=== PATIENT | female | born 1930 | race Caucasian/White ===

== ENCOUNTER 2016-06-09 13:35 | Inpatient (IN) | payer MEDICARE ==
--- NOTE | 2016-06-09 14:17 | ED Physician Chart ---
Chief Complaint/HPI - Patient Information Date Seen:: 06/09/16 Time Seen:: 14:30 Chief Complaint:: redness and swelling both lower legs. History of Present Illness:: Patient has had redness and swelling both lower legs left leg more than right leg for last 1 month. She denies fever or chest pain or shortness of breath Historian:: Patient, Family Member Review:: Nurse's Note Reviewed, Old Chart Reviewed Review of Systems - Review of Systems General/Constitutional: No fever, No chills Skin: Skin lesions Head: No headache Eyes: No loss of vision ENT: No earache Neck: No neck pain Cardio Vascular: No chest pain, No palpitations Pulmonary: No SOB GI: No nausea, No vomiting G/U: No dysuria, No hematuria Musculoskeletal: No bone or joint pain Psychiatric: No prior psych history Hematopoietic: No bruising Allergic/Immuno: No urticaria Neurological: No syncope Past Medical History - Past Medical History Past Medical History: HTN, Thyroid disorder, Arthritis, Other (hypothyroidism; anemia; ulcerative colitis) Family History: Heart disease, Diabetes Melitus, Other (peripheral vascular disease) Social History: Non Smoker Surgical History: other (basal cell carcinomas) Psychiatricy History: None Medication: Reviewed Physical Exam - Physical Examination General/Constitutional: Well-developed, well-nourished, Alert, No distress Head: Atraumatic Eyes: Lids, conjuctiva normal, PERRL Other Skin comments:: Redness, swelling and edema of both lower legs, both ankles, both feet, left more than right ENMT: External ears, nose nl Other ENMT comments:: Edentulous Respiratory: Nl effort/Exclusion Cardio Vascular: RRR, No murmur, gallop, rubs GI: No organomegaly : No CVA tenderness Other Extremities comments:: See above under skin; tinea cruris toes both feet Neuro/Psych: Alert/oriented Misc: Normal back Labs/Radiology/EKG Results - Lab Results Results: Laboratory Results - last 24 hr 06/09/16 06/09/16 06/09/16 14:25 14:25 14:25 WBC 6.3 RBC 4.28 Hgb 12.1 Hct 35.8 MCV 83.4 MCH 28.2 MCHC Differential 33.7 RDW 16.1 Plt Count 293 MPV 7.4 Neutrophils % 69.2 Lymphocytes % 21.6 Monocytes % 8.0 Eosinophils % 0.9 Basophils % 0.3 PT 9.4 L INR 0.90 PTT (Actin FS) 24.0 L Sodium 135 L Potassium 3.7 Chloride 102 Carbon Dioxide 26.6 Anion Gap 10.1 BUN 20 Creatinine 0.7 Est GFR ( Amer) TNP Est GFR (Non-Af Amer) TNP BUN/Creatinine Ratio 28.6 Glucose 109 H Calcium 9.9 - Radiology Results Results: Venous Doppler negative for DVT ED Septic Shock - . Is Septic Shock (SBP<90, OR Lactate>4 mmol\L) present?: No Reassessment (Disposition) - Reassessment Reassessment Condition:: Unchanged - Diagnosis Diagnosis:: cellulitis both lower legs - Patient Disposition Admitted to:: Med/Surg Spoke to:: Naeem Brewer Admitting Medical Physician:: Naeem Brewer Condition at Disposition:: Stable, Unchanged
[2016-06-09 14:36] LABS: % BASOPHILS 0.3 % (0.0-2.0); % EOSINOPHILS 0.9 % (0.0-5.0); % LYMPHOCYTES 21.6 % (20.0-50.0); % NEUTROPHILS 69.2 % (40.0-80.0); HEMATOCRIT 35.8 % (35.0-45.0); HEMOGLOBIN 12.1 gm/dL (11.7-16.1); MEAN CELL VOLUME 83.4 fl (81-100); MEAN CORPUSCULAR HEMOGLOBIN 28.2 pg (27.0-31.0); MEAN CORPUSCULAR HGB CONC 33.7 pg (28.0-36.0); MEAN PLATELET VOLUME 7.4 fl; NEUTROPHILE ABSOLUTE 4.3 Th/cmm (1.8-8.0); PLATELET COUNT 293 Th/cmm (150-400); RED BLOOD COUNT 4.28 Mil/cmm (3.80-5.20); RED CELL DISTRIBUTION WIDTH 16.1 % (11.5-20.0); WHITE BLOOD COUNT 6.3 Th/cmm (4.8-10.8)
[2016-06-09 14:53] LABS: ANION GAP 10.1 (7.0-16.0); BUN - UREA NITROGEN 20 mg/dL (7-25); BUN/CREATININE RATIO 28.6; CALCIUM SERUM 9.9 mg/dL (8.6-10.3); CARBON DIOXIDE 26.6 mEq/L (21.0-31.0); CHLORIDE 102 mEq/L (98-107); CREATININE - SERUM 0.7 mg/dL (0.6-1.2); GLUCOSE 109 mg/dL (70-105); POTASSIUM SERUM 3.7 mEq/L (3.5-5.1); SODIUM SERUM 135 mEq/L (136-145)
[2016-06-09 14:55] LABS: INR 0.9 (0.5-1.4); PROTHROMBIN TIME (TEST) 9.4 SECONDS (9.5-11.5)
--- NOTE | 2016-06-09 15:23 | Diagnostic Imaging Report ---
Bilateral lower extremity Doppler venous ultrasound exam HISTORY: Pain/swelling Sonographic sector images were obtained through the deep venous systems of both legs. Associated Doppler data was obtained. The exam demonstrates patency of the common femoral, superficial femoral, popliteal, and posterior tibial veins bilaterally. Specifically, no thrombus is seen. There are normal compressibility and augmentation responses. IMPRESSION: Negative exam for deep vein thrombophlebitis.
[2016-06-09] MEDS ORDERED: Sodium Chloride 0.9% 1,000 ML IV ONE (15:46)
--- NOTE | 2016-06-09 21:44 | Admit Criteria Form ---
Admit Criteria Forms - Admit Criteria Diagnosis: CELLULITIS Clinical Indications for Admission to Inpatient Care (Place 'X' for any and all applicable criteria): Admission is indicated for ANY ONE of the following(1)(2)(3)(4)(5): [ ]I. Limb-threatening infection [ ]II. High-risk comorbid condition as indicated by ANY ONE of the following: [ ]a) Uncontrolled diabetes (eg, HbA1c greater than 10% (0.1)) [ ]b) Cirrhosis [ ]c) Neutropenia [ ]d) Asplenia [ ]e) Immunosuppression [ ]f) Symptomatic heart failure [X]III. Failure of outpatient therapy as indicated by ALL of the following: [X]a) Progression or no improvement after adequate trial (minimum of 48 hours, with longer period for stable lower extremity infection) [X]b) Adequate antibiotic regimen as indicated by use of ANY ONE of the following: [ ]i) First-generation cephalosporin (e.g., cephalexin) [ ]ii) Antistaphylococcal penicillin (e.g., dicloxacillin) [ ]iii) Penicillin-allergic patient regimen (clindamycin, extended-spectrum fluoroquinolone, or doxycycline) [X]iv) Resistant organism (eg, methicillin-resistant Staphylococcus aureus) regimen (6) [X]c) Outpatient intravenous therapy regimen is not appropriate due to ANY ONE of the following. (7)(8)(9)(10): [ ]i) It was tried and was not successful (eg, progression of infection). [X]ii) It is not available or cannot be arranged in a clinically appropriate time frame (e.g., the next day). [ ]iii) Clinical presentation (eg, acuity of infection, rapidity of progression, confirmed or suspected bacteremia) is judged to require ALL of the following: [ ]1) Immediate initiation of intravenous therapy ( eg, cannot wait for next day) [ ]2) Intensity of patient monitoring and observation (eg, vital sign measurement, checks for infection progression) that cannot be provided at other than inpatient level of care [ ]IV. Mental status changes [ ]V. Bacteremia [ ]. Hemodynamic instability [ ]VII. Suspected necrotizing soft tissue infection (e.g., gas in tissue)(11)( 12) [ ]VIII. Orbital infection (13)(14) [ ]IX. Associated surgical procedure (e.g., abscess drainage, debridement) not amenable to outpatient, emergency department, or observation care [ ]X. Cutaneous gangrene [ ]XI. High fever (temperature greater than 39.5 degrees C (103.1 degrees F) (oral)) not responsive to outpatient, emergency department, or observation care therapy [ ]XIII. Inpatient admission required rather than observation care (Also use Cellulitis: Observation Care as appropriate) because of ANY ONE of the following : [ ]a) Periorbital or perineal infection that is severe or worsening [ ]b) Severe pain requiring acute inpatient management [ ]c) IV fluid to replace significant ongoing (e.g., for over 24 hours) losses (greater than 3L/m2 per day) [ ]d) Compartment syndrome monitoring (17) [ ]e) Strict or protective (eg, laminar flow) isolation [ ]f) Urgent debridement or skin grafting [ ]g) Bone or joint debridement [ ]h) Immediate inpatient surgery [ ]i) Other condition, treatment or monitoring requiring inpatient admission Extended stay beyond goal length of stay may be needed for (1)(18): [ ]a) Necrotizing soft tissue infection or fasciitis [ ]b) Gram-negative infection [ ]c) Methicillin-resistant Staphylococcal aureus (MRSA) infection [ ]d) Peripheral venous insufficiency with cellulitis [ ]e) Extensive edema [ ]f) Sepsis or continued Hemodynamic instability [ ]g) Continued high fever or mental status change [ ]h) Bacteremia [ ]i) Active serious comorbid conditions ( eg, heart failure, renal insufficiency) The original [facility] [employer] content created by [facility] has been revised. The portions of the content which have been revised are identified through the use of italic text or in bold, and [facility] has neither reviewed nor approved the modified material. All other unmodified content is copyright [facility] Please see references footnoted in the original [facility] edition 2016 Admit Criteria Met?: Yes
--- NOTE | 2016-06-10 06:04 | History & Physical ---
CHIEF COMPLAINT: Left leg swelling and redness for almost 1 month. HISTORY OF PRESENT ILLNESS: The patient is an 85-year-old female with a past medical history of hypertension, hypothyroidism, arthritis and ulcerative colitis brought in from nursing facility for redness and swelling of both lower extremities, worse on the left side. The patient also found to have abdominal wall masses mainly on the left side, left lower quadrant. The patient also found to have uterine prolapse. On initial evaluation, the patient was afebrile and WBC count was 6300. The patient admitted for IV antibiotic administration for her cellulitis, worse on the left side. PAST MEDICAL HISTORY: Includes hypertension, hypothyroidism, DJD, arthritis and ulcerative colitis. ALLERGIES: NKDA. MEDICATIONS: As per medication reconciliation sheet. REVIEW OF SYSTEMS: CONSTITUTIONAL: The patient has no fever, no chills. HEENT: No diplopia, no photophobia, no sore throat. RESPIRATORY: No cough, no shortness of breath. CARDIOVASCULAR: No chest pain or palpitation. GASTROINTESTINAL: No nausea, no vomiting, no diarrhea, no constipation. The patient has abdominal masses. GENITOURINARY: The patient has uterine prolapse. MUSCULOSKELETAL: No muscle pain, no joint pain. NEUROLOGIC: No headache, no dizziness, no focal weakness. SKIN: The patient has swelling of the both lower extremity with redness, worse on the left side. FAMILY HISTORY: Noncontributory. SOCIAL HISTORY: The patient lives at nursing facility. PHYSICAL EXAMINATION: VITAL SIGNS: Shows temperature is 97.8, pulse 76, respirations 18, blood pressure 156/85. GENERAL: The patient is comfortable lying in the bed, not in acute distress. HEENT: Head is normocephalic, atraumatic. Oral cavity moist, pink tongue. Eyes: No pallor, no icterus. PERRLA, EOMI. NECK: Supple, no JVD, no carotid bruit. Trachea in midline. CHEST: Bilateral breath sounds. No crackles or wheezing. HEART: S1, S2 within normal limits. Regular rhythm. No murmur, no gallop. ABDOMEN: Soft. The patient has nontender masses in the left lower quadrant. EXTREMITIES: No cyanosis, no clubbing. The patient has swelling of the left leg with redness. Right leg swelling and redness is improving. There is no ulcer. NEUROLOGIC: Alert, awake, oriented x 3. LABORATORY DATA: Current lab shows WBC count is 6300, hemoglobin 12.1, hematocrit 35.8, platelets are 293,000, neutrophils 69.2%. Sodium is 135, potassium 3.7, chloride 102, bicarbonate is 26, BUN is 20, creatinine is 0.7, glucose is 109. Venous ultrasound of the lower extremities shows no evidence of DVT. IMPRESSION: 1. Cellulitis of both lower extremity, worse on the left side. 2. Abdominal wall mass. 3. Uterine prolapse. 4. Hypertension. 5. Hypothyroidism. PLAN: 1. We will consult Dr. Pierre for abdominal mass and uterine prolapse. 2. Antibiotic rodarte, we will give vancomycin IV only. 3. CT scan of the abdomen and pelvis to check abdominal masses and uterine prolapse. 5. Check CBC, BMP and TSH in the morning. JOB# [id number]
[2016-06-10 06:43] LABS: HEMOGLOBIN 10.7 gm/dL (11.7-16.1); MEAN PLATELET VOLUME 7.6 fl; NEUTROPHILE ABSOLUTE 3.4 Th/cmm (1.8-8.0)
[2016-06-10 06:55] LABS: % BASOPHILS 0.4 % (0.0-2.0); % EOSINOPHILS 1.3 % (0.0-5.0); % LYMPHOCYTES 22.7 % (20.0-50.0); % MONOCYTES 12.1 % (2.0-10.0); % NEUTROPHILS 63.5 % (40.0-80.0); MEAN CELL VOLUME 83.1 fl (81-100); MEAN CORPUSCULAR HEMOGLOBIN 28.4 pg (27.0-31.0); MEAN CORPUSCULAR HGB CONC 34.2 pg (28.0-36.0); PLATELET COUNT 274 Th/cmm (150-400); RED BLOOD COUNT 3.75 Mil/cmm (3.80-5.20); RED CELL DISTRIBUTION WIDTH 15.8 % (11.5-20.0); WHITE BLOOD COUNT 5.3 Th/cmm (4.8-10.8)
[2016-06-10] MEDS: Levothyroxine 0.088 Mg Tab PO SCH (07:01)
[2016-06-10 07:03] LABS: HEMATOCRIT 31.2 % (35.0-45.0)
[2016-06-10 07:04] LABS: ANION GAP 8.4 (7.0-16.0); BUN - UREA NITROGEN 13 mg/dL (7-25); BUN/CREATININE RATIO 21.7; CALCIUM SERUM 8.8 mg/dL (8.6-10.3); CARBON DIOXIDE 27.8 mEq/L (21.0-31.0); CHLORIDE 108 mEq/L (98-107); CREATININE - SERUM 0.6 mg/dL (0.6-1.2); GLUCOSE 86 mg/dL (70-105); POTASSIUM SERUM 3.2 mEq/L (3.5-5.1); SODIUM SERUM 141 mEq/L (136-145)
[2016-06-10] MEDS ORDERED: Potassium Chloride 20 mEq ER Tab PO ONE (09:00)
[2016-06-10] MEDS ORDERED: VTE Chemical Prophylaxis Screen/Admission MC PRN (11:24)
--- NOTE | 2016-06-10 14:23 | Diagnostic Imaging Report ---
CT scan abdomen and pelvis without intravenous contrast HISTORY: Mass. Total DLP equals 267 CTDI equals 6.1 Axial sections were obtained from the xiphoid process down to the pubic symphysis. Limited sections the lower chest demonstrate a severe pectus excavatum deformity with concave contour of the anterior chest. Severe scoliosis also noted. The liver exhibits a homogeneous parenchyma. No focal lesions. The spleen appears normal. No focal abnormalities are seen in the region of the pancreas. The right kidney appears normal. There is a mildly dilated left renal collecting system. Significance and etiology uncertain. A punctate calculus is noted in the upper cortical medullary junction region. No hydronephrosis. Atherosclerotic vascular calcification noted throughout the abdominal aorta and iliac vessels. There is a large left inguinal hernia associated with loops of primarily small bowel. There is a moderately distended stool-filled ascending and transverse colon. There is an distended stool-filled rectum suggesting a fecal impaction. No other abnormal masses or fluid collections seen within the pelvis. As noted above, there is a severe scoliosis and severe degenerative changes throughout the spine. IMPRESSION: 1. Large left inguinal hernia associated with multiple loops of predominantly nondilated small bowel. 2. Severe pectus deformity of the chest along with the severe scoliosis and severe degenerative changes throughout the spine. 3. Distended stool-filled rectum suggesting a fecal impaction. Additional moderately distended stool-filled ascending and transverse colon noted. 4. Mildly dilated left renal collecting system. Significance and etiology uncertain. Clinical correlation is needed. A punctate nonobstructing left renal calculus is noted. 5. Extensive atherosclerotic vascular changes 6. Markedly distended urinary bladder. 7. Severe chronic/degenerative changes about the right hip.
--- NOTE | 2016-06-10 23:40 | Infectious Disease Prog Note ---
Infectious Disease Subjective - Review of Systems Service Date: 06/10/16 Subjective: Feels better, she denies any intervention. Infectious Disease Objective - Results Result Diagrams: 06/11/16 04:59 06/11/16 04:59 Recent Labs: Laboratory Last Values WBC 5.3 Th/cmm (4.8-10.8) 06/10/16 05:25 RBC 3.75 Mil/cmm (3.80-5.20) L 06/10/16 05:25 Hgb 10.7 gm/dL (11.7-16.1) L 06/10/16 05:25 Hct 31.2 % (35.0-45.0) L D 06/10/16 05:25 MCV 83.1 fl (81-100) 06/10/16 05:25 MCH 28.4 pg (27.0-31.0) 06/10/16 05:25 MCHC Differential 34.2 pg (28.0-36.0) 06/10/16 05:25 RDW 15.8 % (11.5-20.0) 06/10/16 05:25 Plt Count 274 Th/cmm (150-400) 06/10/16 05:25 MPV 7.6 fl 06/10/16 05:25 Neutrophils % 63.5 % (40.0-80.0) 06/10/16 05:25 Lymphocytes % 22.7 % (20.0-50.0) 06/10/16 05:25 Monocytes % 12.1 % (2.0-10.0) H 06/10/16 05:25 Eosinophils % 1.3 % (0.0-5.0) 06/10/16 05:25 Basophils % 0.4 % (0.0-2.0) 06/10/16 05:25 PT 9.4 SECONDS (9.5-11.5) L 06/09/16 14:25 INR 0.90 (0.5-1.4) 06/09/16 14:25 PTT (Actin FS) 24.0 SECONDS (26.0-38.0) L 06/09/16 14:25 Sodium 141 mEq/L (136-145) 06/10/16 05:25 Potassium 3.2 mEq/L (3.5-5.1) L 06/10/16 05:25 Chloride 108 mEq/L (98-107) H 06/10/16 05:25 Carbon Dioxide 27.8 mEq/L (21.0-31.0) 06/10/16 05:25 Anion Gap 8.4 (7.0-16.0) 06/10/16 05:25 BUN 13 mg/dL (7-25) 06/10/16 05:25 Creatinine 0.6 mg/dL (0.6-1.2) 06/10/16 05:25 Est GFR ( Amer) TNP 06/10/16 05:25 Est GFR (Non-Af Amer) TNP 06/10/16 05:25 BUN/Creatinine Ratio 21.7 06/10/16 05:25 Glucose 86 mg/dL (70-105) 06/10/16 05:25 Calcium 8.8 mg/dL (8.6-10.3) 06/10/16 05:25 TSH 1.26 uIU/ml (0.34-5.60) 06/10/16 05:25 - Physical Exam Vitals and I&O: Vital Signs Temp 98.7 F 06/10/16 20:00 Pulse 70 06/10/16 20:00 Resp 16 06/10/16 20:00 BP 128/75 06/10/16 20:00 Pulse Ox 97 06/10/16 20:00 Intake & Output 06/10/16 06/10/16 06/11/16 06:59 18:59 06:59 Intake Total 350 800 Balance 350 800 Intake: Oral 100 800 Other 250 Other: # Voids 3 3 # Bowel Movements 0 Stool Characteristics Soft Formed Active Medications: Current Medications Amlodipine Besylate (Norvasc) 5 mg PO DAILY LAVELLE Stop: 08/09/16 08:59 Last Admin: 06/10/16 08:24 Dose: 5 mg Heparin Sodium (Porcine) (Heparin) 5,000 units SUBQ Q12H [place]LE Stop: 08/09/16 20:59 Last Admin: 06/10/16 21:22 Dose: 5,000 units Vancomycin HCl 0.75 gm/ Sodium (Chloride) 250 mls @ 165 mls/hr IV Q24H [place] Stop: 08/09/16 15:59 Last Admin: 06/10/16 15:13 Dose: 165 mls/hr Levothyroxine Sodium (Synthroid) 0.088 mg PO QDAC [facility] Stop: 08/09/16 07:29 Last Admin: 06/10/16 07:01 Dose: 0.088 mg Miscellaneous (Vancomycin Iv Per Pharmacy) 1 [facility] PRN PRN PRN Reason: PROTOCOL Stop: 08/09/16 01:57 Miscellaneous ([employer] Prophylaxis Screen/ Admission) 1 [facility] PRN PRN PRN Reason: PROTOCOL Stop: 08/09/16 11:23 General: no acute distress, cachectic HEENT: atraumatic, normocephalic, PERRLA, EOMI, moist mucous membrane Neck: supple Cardiovascular: S1S2, regular Lungs: clear to auscultation bilaterally, clear to percussion Abdomen: soft, bowel sounds, other (LLQ with hernia.), no tender, no distended Extremities: no cyanosis, no clubbing, no edema Neurological: awake, alert, oriented Skin: intact Infectious Disease Assmt/Plan - Assessment Assessment: IMPRESSION: 1. Cellulitis of both lower extremity, worse on the left side. 2. Abdominal wall mass. 3. Uterine prolapse. 4. Hypertension. 5. Hypothyroidism. - Plan Plan: Continue vanco iv fo r 7 days. dc plan ordered. Nutritional Asmnt/Malnutr-PDOC - Dietary Evaluation Malnutrition Findings (Please click <Entered> for more info): Nutritional Asmnt/Malnutrition Start: 06/10/16 15: 36 Text: Status: Complete Freq: Document 06/10/16 15:36 GSUN (Rec: 06/10/16 15:50 GSUN [id number]) Nutritional Asmnt/Malnutrition Patient General Information Nutritional Screening Consult Diagnosis Cellulitis bother lower extremity Pertinent Medical Hx/Surgical Hx HTN, hypothyroidiam, DJD, arthritis, ulcerative colitis Subjective Information 85 year old female. Pt was alert and pleasant, slight forgetfulness noted. Pt does not know UBW, but certain of weight loss over the years. Pt is used to diet at ?home/SNF, ate 25% breakfast, stated "I just don't care for it." Encouraged PO, pt agreed, ate 50% this lunch, meeting nutritional needs. Unable to obtain new weight due to multiple blankets on bedscale (103.3lb with 4 blankets). Pt stated she has a dietitian at ?home who has pt on a low fiber, lactose free diet. Confirmed lactose intolerance. Severe fat/muscle wasting to temporals, cheeks, clavicles, shoulders noted. Current Diet Order/ Nutrition Support Pureed, lactose free Pertinent Medications Synthroid, Vancomycin Pertinent Labs 06/10: Reviewed. Nutritional Hx/Data Height 1.57 m Height (Calculated Centimeters) 157.5 Current Weight (lbs) 36.287 kg Weight (Calculated Kilograms) 36.3 Weight (Calculated Grams) 24551.4 [place] Body Weight 110lb Recent Weight Change No Weight Status Underweight GI Symptoms Cultural/Ethnic/Evangelical Belief Unknown. Usual diet at home Low fiber, lactose free Skin Integrity/Comment: Wero Pereira. Skin intact, 3+ pitting bilateral lower extremity Current %PO Poor (25-49%) Estimated Nutritional Goals Calories/Kcals/Kg IBW 110lb/50kg, 25-30kcal/kg Kcals Calculated 1250-1500kcal Protein g/kg: IBW 1-1.2g/kg Protein Calculated 50-60g Fluid: ml 1250-1500ml (1ml/kcal) Nutritional Problem 1. Problem Problem Underweight related to Etiology possible imbalance of energy intake vs expenditure aeb Signs/Symptoms: BMI <18.5, muscle/fat depletion Intervention/Recommendation Comments 1. Continue with pureed diet. RD encouraged PO intake and emphasized importance of nutrition, pt agreed to increase PO intake. This lunch 50%, meeting 134% of lower end of estimated kcal needs. 2. FNS to honor pt's food preferences. 3. Obtain new weight, if possible. Expected Outcomes/Goals Expected Outcomes/Goals 1. PO intake to meet at least 100% of estimated nutritional needs. 2. Weight gain towards IBW.
[2016-06-11 05:35] LABS: % BASOPHILS 0.8 % (0.0-2.0); % EOSINOPHILS 1.7 % (0.0-5.0); % LYMPHOCYTES 21.2 % (20.0-50.0); % MONOCYTES 10.1 % (2.0-10.0); % NEUTROPHILS 66.2 % (40.0-80.0); HEMATOCRIT 32.8 % (35.0-45.0); HEMOGLOBIN 11.2 gm/dL (11.7-16.1); MEAN CELL VOLUME 83.4 fl (81-100); MEAN CORPUSCULAR HEMOGLOBIN 28.3 pg (27.0-31.0); MEAN PLATELET VOLUME 7.7 fl; NEUTROPHILE ABSOLUTE 3.7 Th/cmm (1.8-8.0); PLATELET COUNT 287 Th/cmm (150-400); RED BLOOD COUNT 3.94 Mil/cmm (3.80-5.20); RED CELL DISTRIBUTION WIDTH 15.8 % (11.5-20.0); WHITE BLOOD COUNT 5.4 Th/cmm (4.8-10.8)
[2016-06-11] MEDS: Levothyroxine 0.088 Mg Tab PO SCH (07:01)
[2016-06-11 07:34] LABS: ALB/GLOB RATIO 1.1 (1.0-1.8); ALKALINE PHOSPHATASE 67 U/L (34-104); ANION GAP 11.4 (7.0-16.0); BILIRUBIN,TOTAL 0.8 mg/dL (0.3-1.0); BUN - UREA NITROGEN 16 mg/dL (7-25); BUN/CREATININE RATIO 22.9; CALCIUM SERUM 9.5 mg/dL (8.6-10.3); CARBON DIOXIDE 25.3 mEq/L (21.0-31.0); CHLORIDE 105 mEq/L (98-107); CREATININE - SERUM 0.7 mg/dL (0.6-1.2); GLUCOSE 83 mg/dL (70-105); POTASSIUM SERUM 3.7 mEq/L (3.5-5.1); SGOT 28 U/L (13-39); SGPT/ALT 15 U/L (7-52); SODIUM SERUM 138 mEq/L (136-145)
--- NOTE | 2016-06-11 10:07 | General Progress Note ---
Subjective - Review of Systems Events since last encounter: 06/11/16 called daughter via phone and will come in to talk to patient patient is alert and oriented and does not want to under any diagnostic test she wants to go home and be left alone Objective - Results Result Diagrams: 06/11/16 04:59 06/11/16 04:59 Recent Labs: Laboratory Last Values WBC 5.4 Th/cmm (4.8-10.8) 06/11/16 04:59 RBC 3.94 Mil/cmm (3.80-5.20) 06/11/16 04:59 Hgb 11.2 gm/dL (11.7-16.1) L 06/11/16 04:59 Hct 32.8 % (35.0-45.0) L 06/11/16 04:59 MCV 83.4 fl (81-100) 06/11/16 04:59 MCH 28.3 pg (27.0-31.0) 06/11/16 04:59 MCHC Differential 34.0 pg (28.0-36.0) 06/11/16 04:59 RDW 15.8 % (11.5-20.0) 06/11/16 04:59 Plt Count 287 Th/cmm (150-400) 06/11/16 04:59 MPV 7.7 fl 06/11/16 04:59 Neutrophils % 66.2 % (40.0-80.0) 06/11/16 04:59 Lymphocytes % 21.2 % (20.0-50.0) 06/11/16 04:59 Monocytes % 10.1 % (2.0-10.0) H 06/11/16 04:59 Eosinophils % 1.7 % (0.0-5.0) 06/11/16 04:59 Basophils % 0.8 % (0.0-2.0) 06/11/16 04:59 PT 9.4 SECONDS (9.5-11.5) L 06/09/16 14:25 INR 0.90 (0.5-1.4) 06/09/16 14:25 PTT (Actin FS) 24.0 SECONDS (26.0-38.0) L 06/09/16 14:25 Sodium 138 mEq/L (136-145) 06/11/16 04:59 Potassium 3.7 mEq/L (3.5-5.1) 06/11/16 04:59 Chloride 105 mEq/L (98-107) 06/11/16 04:59 Carbon Dioxide 25.3 mEq/L (21.0-31.0) 06/11/16 04:59 Anion Gap 11.4 (7.0-16.0) 06/11/16 04:59 BUN 16 mg/dL (7-25) 06/11/16 04:59 Creatinine 0.7 mg/dL (0.6-1.2) 06/11/16 04:59 Est GFR ( Amer) TNP 06/11/16 04:59 Est GFR (Non-Af Amer) TNP 06/11/16 04:59 BUN/Creatinine Ratio 22.9 06/11/16 04:59 Glucose 83 mg/dL (70-105) 06/11/16 04:59 Calcium 9.5 mg/dL (8.6-10.3) 06/11/16 04:59 Total Bilirubin 0.8 mg/dL (0.3-1.0) 06/11/16 04:59 AST 28 U/L (13-39) 06/11/16 04:59 ALT 15 U/L (7-52) 06/11/16 04:59 Alkaline Phosphatase 67 U/L (34-104) 06/11/16 04:59 Total Protein 6.2 gm/dL (6.0-8.3) 06/11/16 04:59 Albumin 3.2 gm/dL (3.7-5.3) L 06/11/16 04:59 Globulin 3.0 gm/dL 06/11/16 04:59 Albumin/Globulin Ratio 1.1 (1.0-1.8) 06/11/16 04:59 TSH 1.26 uIU/ml (0.34-5.60) 06/10/16 05:25 - Physical Exam Vitals and I&O: Vital Signs Temp 98.1 F 06/11/16 08:00 Pulse 65 06/11/16 08:46 Resp 18 06/11/16 08:00 BP 146/77 06/11/16 08:46 Pulse Ox 98 06/11/16 08:00 Intake & Output 06/10/16 06/11/16 06/11/16 18:59 06:59 18:59 Intake Total 800 200 Balance 800 200 Intake: Oral 800 200 Other: # Voids 3 3 # Bowel Movements 0 Stool Characteristics Soft Soft Formed Formed Active Medications: Current Medications Amlodipine Besylate (Norvasc) 5 mg PO DAILY [facility] Stop: 08/09/16 08:59 Last Admin: 06/11/16 08:46 Dose: 5 mg Heparin Sodium (Porcine) (Heparin) 5,000 units SUBQ Q12H [facility] Stop: 08/09/16 20:59 Last Admin: 06/11/16 08:47 Dose: 5,000 units Vancomycin HCl 0.75 gm/ Sodium (Chloride) 250 mls @ 165 mls/hr IV Q24H [facility] Stop: 08/09/16 15:59 Last Admin: 06/10/16 15:13 Dose: 165 mls/hr Levothyroxine Sodium (Synthroid) 0.088 mg PO QDAC [facility] Stop: 08/09/16 07:29 Last Admin: 06/11/16 07:01 Dose: 0.088 mg Miscellaneous (Vancomycin Iv Per Pharmacy) 1 [facility] PRN PRN PRN Reason: PROTOCOL Stop: 08/09/16 01:57 Miscellaneous (Vte Chemical Prophylaxis Screen/ Admission) 1 [facility] PRN PRN PRN Reason: PROTOCOL Stop: 08/09/16 11:23 Nutritional Asmnt/Malnutr-PDOC - Dietary Evaluation Malnutrition Findings (Please click <Entered> for more info): Nutritional Asmnt/Malnutrition Start: 06/10/16 15: 36 Text: Status: Complete Freq: Document 06/10/16 15:36 GSUN (Rec: 06/10/16 15:50 GSUN [email or web address]) Nutritional Asmnt/Malnutrition Patient General Information Nutritional Screening Consult Diagnosis Cellulitis bother lower extremity Pertinent Medical Hx/Surgical Hx HTN, hypothyroidiam, DJD, arthritis, ulcerative colitis Subjective Information 85 year old female. Pt was alert and pleasant, slight forgetfulness noted. Pt does not know UBW, but certain of weight loss over the years. Pt is used to diet at ?home/SNF, ate 25% breakfast, stated "I just don't care for it." Encouraged PO, pt agreed, ate 50% this lunch, meeting nutritional needs. Unable to obtain new weight due to multiple blankets on bedscale (103.3lb with 4 blankets). Pt stated she has a dietitian at ?home who has pt on a low fiber, lactose free diet. Confirmed lactose intolerance. Severe fat/muscle wasting to temporals, cheeks, clavicles, shoulders noted. Current Diet Order/ Nutrition Support Pureed, lactose free Pertinent Medications Synthroid, Vancomycin Pertinent Labs 06/10: Reviewed. Nutritional Hx/Data Height 1.57 m Height (Calculated Centimeters) 157.5 Current Weight (lbs) 36.287 kg Weight (Calculated Kilograms) 36.3 Weight (Calculated Grams) 80819.4 [place] Body Weight 110lb Recent Weight Change No Weight Status Underweight GI Symptoms Cultural/Ethnic/Yazdanism Belief Unknown. Usual diet at home Low fiber, lactose free Skin Integrity/Comment: Wero Pereira. Skin intact, 3+ pitting bilateral lower extremity Current %PO Poor (25-49%) Estimated Nutritional Goals Calories/Kcals/Kg IBW 110lb/50kg, 25-30kcal/kg Kcals Calculated 1250-1500kcal Protein g/kg: IBW 1-1.2g/kg Protein Calculated 50-60g Fluid: ml 1250-1500ml (1ml/kcal) Nutritional Problem 1. Problem Problem Underweight related to Etiology possible imbalance of energy intake vs expenditure aeb Signs/Symptoms: BMI <18.5, muscle/fat depletion Intervention/Recommendation Comments 1. Continue with pureed diet. RD encouraged PO intake and emphasized importance of nutrition, pt agreed to increase PO intake. This lunch 50%, meeting 134% of lower end of estimated kcal needs. 2. FNS to honor pt's food preferences. 3. Obtain new weight, if possible. Expected Outcomes/Goals Expected Outcomes/Goals 1. PO intake to meet at least 100% of estimated nutritional needs. 2. Weight gain towards IBW.
--- NOTE | 2016-06-11 10:53 | Consultation ---
REFERRING PHYSICIAN: Naeem Brewer MD REASON FOR CONSULTATION: Abdominal mass. Thank you for referring this patient to me. HISTORY OF PRESENT ILLNESS: This 85-year-old female who is mostly well oriented and alert, who comes in because of cellulitis of the left leg for about a month. The patient has known history of hypertension, hypothyroidism, degenerative joint disease, ulcerative colitis diagnosed about a year ago. She has had apparently 2 or [address] Ponce. On this admission, the CT scan showed a large left inguinal hernia with multiple loops of small bowel, severe deformity of the chest with scoliosis, distended stool filled rectum with possible bowel obstruction, question of possible fecal impaction, dilated left ureter and markedly distended urinary bladder. LABORATORY STUDIES: CBC is normal. Chemistry is essentially normal as well. PHYSICAL EXAMINATION: GENERAL: The patient appears to be oriented. CHEST: There is scoliosis present. ABDOMEN: Flat and soft. A midline abdominal incision and a large left inguinal hernia with loops of bowel, question of abdominal mass by palpation, a large lipoma in the left perineum. The daughter was called via telephone regarding patient's refusal to have any diagnostic procedures done on this admission. She appears to know exactly what she wants to do and not to do and will respect her opinion. Daughter is to come and talk to her and try and ____ doing test to confirm possibility of abdominal mass. We will follow with you. [facility]# [id number]
--- NOTE | 2016-06-11 23:25 | Infectious Disease Prog Note ---
Infectious Disease Subjective - Review of Systems Service Date: 06/11/16 Subjective: There is no new change, there is no fever. Infectious Disease Objective - Results Result Diagrams: 06/11/16 04:59 06/11/16 04:59 Recent Labs: Laboratory Last Values WBC 5.4 Th/cmm (4.8-10.8) 06/11/16 04:59 RBC 3.94 Mil/cmm (3.80-5.20) 06/11/16 04:59 Hgb 11.2 gm/dL (11.7-16.1) L 06/11/16 04:59 Hct 32.8 % (35.0-45.0) L 06/11/16 04:59 MCV 83.4 fl (81-100) 06/11/16 04:59 MCH 28.3 pg (27.0-31.0) 06/11/16 04:59 MCHC Differential 34.0 pg (28.0-36.0) 06/11/16 04:59 RDW 15.8 % (11.5-20.0) 06/11/16 04:59 Plt Count 287 Th/cmm (150-400) 06/11/16 04:59 MPV 7.7 fl 06/11/16 04:59 Neutrophils % 66.2 % (40.0-80.0) 06/11/16 04:59 Lymphocytes % 21.2 % (20.0-50.0) 06/11/16 04:59 Monocytes % 10.1 % (2.0-10.0) H 06/11/16 04:59 Eosinophils % 1.7 % (0.0-5.0) 06/11/16 04:59 Basophils % 0.8 % (0.0-2.0) 06/11/16 04:59 PT 9.4 SECONDS (9.5-11.5) L 06/09/16 14:25 INR 0.90 (0.5-1.4) 06/09/16 14:25 PTT (Actin FS) 24.0 SECONDS (26.0-38.0) L 06/09/16 14:25 Sodium 138 mEq/L (136-145) 06/11/16 04:59 Potassium 3.7 mEq/L (3.5-5.1) 06/11/16 04:59 Chloride 105 mEq/L (98-107) 06/11/16 04:59 Carbon Dioxide 25.3 mEq/L (21.0-31.0) 06/11/16 04:59 Anion Gap 11.4 (7.0-16.0) 06/11/16 04:59 BUN 16 mg/dL (7-25) 06/11/16 04:59 Creatinine 0.7 mg/dL (0.6-1.2) 06/11/16 04:59 Est GFR ( Amer) TNP 06/11/16 04:59 Est GFR (Non-Af Amer) TNP 06/11/16 04:59 BUN/Creatinine Ratio 22.9 06/11/16 04:59 Glucose 83 mg/dL (70-105) 06/11/16 04:59 Calcium 9.5 mg/dL (8.6-10.3) 06/11/16 04:59 Total Bilirubin 0.8 mg/dL (0.3-1.0) 06/11/16 04:59 AST 28 U/L (13-39) 06/11/16 04:59 ALT 15 U/L (7-52) 06/11/16 04:59 Alkaline Phosphatase 67 U/L (34-104) 06/11/16 04:59 Total Protein 6.2 gm/dL (6.0-8.3) 06/11/16 04:59 Albumin 3.2 gm/dL (3.7-5.3) L 06/11/16 04:59 Globulin 3.0 gm/dL 06/11/16 04:59 Albumin/Globulin Ratio 1.1 (1.0-1.8) 06/11/16 04:59 TSH 1.26 uIU/ml (0.34-5.60) 06/10/16 05:25 Vancomycin Trough 7.4 ug/mL (10-20) L 06/11/16 14:53 - Physical Exam Vitals and I&O: Vital Signs Temp 98.2 F 06/11/16 16:00 Pulse 66 06/11/16 16:00 Resp 18 06/11/16 16:00 BP 118/69 06/11/16 16:00 Pulse Ox 97 06/11/16 16:00 Intake & Output 06/11/16 06/11/16 06/12/16 06:59 18:59 06:59 Intake Total 200 800 Balance 200 800 Intake: Oral 200 800 Other: # Voids 3 3 # Bowel Movements 0 Stool Characteristics Soft Soft Formed Formed Active Medications: Current Medications Amlodipine Besylate (Norvasc) 5 mg PO DAILY [facility] Stop: 08/09/16 08:59 Last Admin: 06/11/16 08:46 Dose: 5 mg Heparin Sodium (Porcine) (Heparin) 5,000 units SUBQ Q12H [facility] Stop: 08/09/16 20:59 Last Admin: 06/11/16 20:54 Dose: 5,000 units Vancomycin HCl 0.75 gm/ Sodium (Chloride) 250 mls @ 165 mls/hr IV Q24H [facility] Stop: 08/09/16 15:59 Last Admin: 06/11/16 16:40 Dose: 165 mls/hr Levothyroxine Sodium (Synthroid) 0.088 mg PO QDAC [facility] Stop: 08/09/16 07:29 Last Admin: 06/11/16 07:01 Dose: 0.088 mg Miscellaneous (Vancomycin Iv Per Pharmacy) 1 [facility] PRN PRN PRN Reason: PROTOCOL Stop: 08/09/16 01:57 Miscellaneous (Vte Chemical Prophylaxis Screen/ Admission) 1 [facility] PRN PRN PRN Reason: PROTOCOL Stop: 08/09/16 11:23 General: no acute distress, cachectic HEENT: atraumatic, normocephalic, PERRLA, EOMI Neck: supple, no thyromegaly Cardiovascular: S1S2, regular Lungs: clear to auscultation bilaterally, clear to percussion Abdomen: soft, other (swelling LLQ), no tender, no distended Extremities: other (redness of the left leg.), no cyanosis, no clubbing, no edema Neurological: awake, alert, oriented Skin: intact Infectious Disease Assmt/Plan - Assessment Assessment: Left leg cellulitis. LLQ hernia. Constipation. - Plan Plan: will dc patient home with for antibiotics. Nutritional Asmnt/Malnutr-PDOC - Dietary Evaluation Malnutrition Findings (Please click <Entered> for more info): Nutritional Asmnt/Malnutrition Start: 06/10/16 15: 36 Text: Status: Complete Freq: Document 06/10/16 15:36 GSUN (Rec: 06/10/16 15:50 VALERI [email or web address]) Nutritional Asmnt/Malnutrition Patient General Information Nutritional Screening Consult Diagnosis Cellulitis bother lower extremity Pertinent Medical Hx/Surgical Hx HTN, hypothyroidiam, DJD, arthritis, ulcerative colitis Subjective Information 85 year old female. Pt was alert and pleasant, slight forgetfulness noted. Pt does not know UBW, but certain of weight loss over the years. Pt is used to diet at ?home/SNF, ate 25% breakfast, stated "I just don't care for it." Encouraged PO, pt agreed, ate 50% this lunch, meeting nutritional needs. Unable to obtain new weight due to multiple blankets on bedscale (103.3lb with 4 blankets). Pt stated she has a dietitian at ?home who has pt on a low fiber, lactose free diet. Confirmed lactose intolerance. Severe fat/muscle wasting to temporals, cheeks, clavicles, shoulders noted. Current Diet Order/ Nutrition Support Pureed, lactose free Pertinent Medications Synthroid, Vancomycin Pertinent Labs 06/10: Reviewed. Nutritional Hx/Data Height 1.57 m Height (Calculated Centimeters) 157.5 Current Weight (lbs) 36.287 kg Weight (Calculated Kilograms) 36.3 Weight (Calculated Grams) 60545.4 [place] Body Weight 110lb Recent Weight Change No Weight Status Underweight GI Symptoms Cultural/Ethnic/Mosque Belief Unknown. Usual diet at home Low fiber, lactose free Skin Integrity/Comment: Wero Pereira. Skin intact, 3+ pitting bilateral lower extremity Current %PO Poor (25-49%) Estimated Nutritional Goals Calories/Kcals/Kg IBW 110lb/50kg, 25-30kcal/kg Kcals Calculated 1250-1500kcal Protein g/kg: IBW 1-1.2g/kg Protein Calculated 50-60g Fluid: ml 1250-1500ml (1ml/kcal) Nutritional Problem 1. Problem Problem Underweight related to Etiology possible imbalance of energy intake vs expenditure aeb Signs/Symptoms: BMI <18.5, muscle/fat depletion Intervention/Recommendation Comments 1. Continue with pureed diet. RD encouraged PO intake and emphasized importance of nutrition, pt agreed to increase PO intake. This lunch 50%, meeting 134% of lower end of estimated kcal needs. 2. FNS to honor pt's food preferences. 3. Obtain new weight, if possible. Expected Outcomes/Goals Expected Outcomes/Goals 1. PO intake to meet at least 100% of estimated nutritional needs. 2. Weight gain towards IBW.
[2016-06-12 05:25] LABS: % BASOPHILS 1.1 % (0.0-2.0); % EOSINOPHILS 2.4 % (0.0-5.0); % LYMPHOCYTES 28.4 % (20.0-50.0); % MONOCYTES 10.5 % (2.0-10.0); % NEUTROPHILS 57.6 % (40.0-80.0); HEMOGLOBIN 9.9 gm/dL (11.7-16.1); MEAN CELL VOLUME 83.6 fl (81-100); MEAN CORPUSCULAR HEMOGLOBIN 28.1 pg (27.0-31.0); MEAN CORPUSCULAR HGB CONC 33.6 pg (28.0-36.0); MEAN PLATELET VOLUME 7.4 fl; NEUTROPHILE ABSOLUTE 3.1 Th/cmm (1.8-8.0); PLATELET COUNT 259 Th/cmm (150-400); RED BLOOD COUNT 3.51 Mil/cmm (3.80-5.20); WHITE BLOOD COUNT 5.5 Th/cmm (4.8-10.8)
[2016-06-12 05:30] LABS: HEMATOCRIT 29.4 % (35.0-45.0)
[2016-06-12 05:41] LABS: ANION GAP 7.7 (7.0-16.0); BUN - UREA NITROGEN 16 mg/dL (7-25); BUN/CREATININE RATIO 22.9; CALCIUM SERUM 9.1 mg/dL (8.6-10.3); CARBON DIOXIDE 26.8 mEq/L (21.0-31.0); CHLORIDE 107 mEq/L (98-107); CREATININE - SERUM 0.7 mg/dL (0.6-1.2); GLUCOSE 82 mg/dL (70-105); POTASSIUM SERUM 3.5 mEq/L (3.5-5.1); SODIUM SERUM 138 mEq/L (136-145)
[2016-06-12] MEDS: Levothyroxine 0.088 Mg Tab PO SCH (06:57)
[2016-06-12] MEDS ORDERED: Lactulose 10 Gm/15 mL 30mL UDC PO SCH (09:00)
--- NOTE | 2016-06-12 11:22 | General Progress Note ---
Subjective - Review of Systems Service Date: 06/12/16 Events since last encounter: patient refusing needed surgery, says she has only 2 years to live and wants to go home Objective - Results Result Diagrams: 06/12/16 05:02 06/12/16 05:02 Recent Labs: Laboratory Last Values WBC 5.5 Th/cmm (4.8-10.8) 06/12/16 05:02 RBC 3.51 Mil/cmm (3.80-5.20) L 06/12/16 05:02 Hgb 9.9 gm/dL (11.7-16.1) L 06/12/16 05:02 Hct 29.4 % (35.0-45.0) L D 06/12/16 05:02 MCV 83.6 fl (81-100) 06/12/16 05:02 MCH 28.1 pg (27.0-31.0) 06/12/16 05:02 MCHC Differential 33.6 pg (28.0-36.0) 06/12/16 05:02 RDW 16.0 % (11.5-20.0) 06/12/16 05:02 Plt Count 259 Th/cmm (150-400) 06/12/16 05:02 MPV 7.4 fl 06/12/16 05:02 Neutrophils % 57.6 % (40.0-80.0) 06/12/16 05:02 Lymphocytes % 28.4 % (20.0-50.0) 06/12/16 05:02 Monocytes % 10.5 % (2.0-10.0) H 06/12/16 05:02 Eosinophils % 2.4 % (0.0-5.0) 06/12/16 05:02 Basophils % 1.1 % (0.0-2.0) 06/12/16 05:02 PT 9.4 SECONDS (9.5-11.5) L 06/09/16 14:25 INR 0.90 (0.5-1.4) 06/09/16 14:25 PTT (Actin FS) 24.0 SECONDS (26.0-38.0) L 06/09/16 14:25 Sodium 138 mEq/L (136-145) 06/12/16 05:02 Potassium 3.5 mEq/L (3.5-5.1) 06/12/16 05:02 Chloride 107 mEq/L (98-107) 06/12/16 05:02 Carbon Dioxide 26.8 mEq/L (21.0-31.0) 06/12/16 05:02 Anion Gap 7.7 (7.0-16.0) 06/12/16 05:02 BUN 16 mg/dL (7-25) 06/12/16 05:02 Creatinine 0.7 mg/dL (0.6-1.2) 06/12/16 05:02 Est GFR ( Amer) TNP 06/12/16 05:02 Est GFR (Non-Af Amer) TNP 06/12/16 05:02 BUN/Creatinine Ratio 22.9 06/12/16 05:02 Glucose 82 mg/dL (70-105) 06/12/16 05:02 Calcium 9.1 mg/dL (8.6-10.3) 06/12/16 05:02 Total Bilirubin 0.8 mg/dL (0.3-1.0) 06/11/16 04:59 AST 28 U/L (13-39) 06/11/16 04:59 ALT 15 U/L (7-52) 06/11/16 04:59 Alkaline Phosphatase 67 U/L (34-104) 06/11/16 04:59 Total Protein 6.2 gm/dL (6.0-8.3) 06/11/16 04:59 Albumin 3.2 gm/dL (3.7-5.3) L 06/11/16 04:59 Globulin 3.0 gm/dL 06/11/16 04:59 Albumin/Globulin Ratio 1.1 (1.0-1.8) 06/11/16 04:59 TSH 1.26 uIU/ml (0.34-5.60) 06/10/16 05:25 Vancomycin Trough 7.4 ug/mL (10-20) L 06/11/16 14:53 - Physical Exam Vitals and I&O: Vital Signs Temp 98.2 F 06/12/16 08:00 Pulse 59 06/12/16 10:01 Resp 16 06/12/16 08:00 BP 126/65 06/12/16 10:01 Pulse Ox 97 06/12/16 08:00 Intake & Output 06/11/16 06/12/16 06/12/16 18:59 06:59 18:59 Intake Total 800 100 Balance 800 100 Intake: Oral 800 100 Other: # Voids 3 3 # Bowel Movements 0 Stool Characteristics Soft Formed Active Medications: Current Medications Amlodipine Besylate (Norvasc) 5 mg PO DAILY [facility] Stop: 08/09/16 08:59 Last Admin: 06/12/16 10:01 Dose: 5 mg Heparin Sodium (Porcine) (Heparin) 5,000 units SUBQ Q12H [facility] Stop: 08/09/16 20:59 Last Admin: 06/12/16 10:00 Dose: 5,000 units Vancomycin HCl 0.75 gm/ Sodium (Chloride) 250 mls @ 165 mls/hr IV Q24H [facility] Stop: 08/09/16 15:59 Last Admin: 06/11/16 16:40 Dose: 165 mls/hr Lactulose (Cephulac) 30 gm PO BID [facility] Stop: 08/11/16 08:59 Last Admin: 06/12/16 10:00 Dose: 30 gm Levothyroxine Sodium (Synthroid) 0.088 mg PO QDAC [facility] Stop: 08/09/16 07:29 Last Admin: 06/12/16 06:57 Dose: 0.088 mg Miscellaneous (Vancomycin Iv Per Pharmacy) 1 [facility] PRN PRN PRN Reason: PROTOCOL Stop: 08/09/16 01:57 Miscellaneous (Vte Chemical Prophylaxis Screen/ Admission) 1 [facility] PRN PRN PRN Reason: PROTOCOL Stop: 08/09/16 11:23 Nutritional Asmnt/Malnutr-PDOC - Dietary Evaluation Malnutrition Findings (Please click <Entered> for more info): Nutritional Asmnt/Malnutrition Start: 06/10/16 15: 36 Text: Status: Complete Freq: Document 06/10/16 15:36 GSUN (Rec: 06/10/16 15:50 [email or web address]) Nutritional Asmnt/Malnutrition Patient General Information Nutritional Screening Consult Diagnosis Cellulitis bother lower extremity Pertinent Medical Hx/Surgical Hx HTN, hypothyroidiam, DJD, arthritis, ulcerative colitis Subjective Information 85 year old female. Pt was alert and pleasant, slight forgetfulness noted. Pt does not know UBW, but certain of weight loss over the years. Pt is used to diet at ?home/SNF, ate 25% breakfast, stated "I just don't care for it." Encouraged PO, pt agreed, ate 50% this lunch, meeting nutritional needs. Unable to obtain new weight due to multiple blankets on bedscale (103.3lb with 4 blankets). Pt stated she has a dietitian at ?home who has pt on a low fiber, lactose free diet. Confirmed lactose intolerance. Severe fat/muscle wasting to temporals, cheeks, clavicles, shoulders noted. Current Diet Order/ Nutrition Support Pureed, lactose free Pertinent Medications Synthroid, Vancomycin Pertinent Labs 06/10: Reviewed. Nutritional Hx/Data Height 1.57 m Height (Calculated Centimeters) 157.5 Current Weight (lbs) 36.287 kg Weight (Calculated Kilograms) 36.3 Weight (Calculated Grams) 73793.4 [place] Body Weight 110lb Recent Weight Change No Weight Status Underweight GI Symptoms Cultural/Ethnic/Christian Belief Unknown. Usual diet at home Low fiber, lactose free Skin Integrity/Comment: Wero 20. Skin intact, 3+ pitting bilateral lower extremity Current %PO Poor (25-49%) Estimated Nutritional Goals Calories/Kcals/Kg IBW 110lb/50kg, 25-30kcal/kg Kcals Calculated 1250-1500kcal Protein g/kg: IBW 1-1.2g/kg Protein Calculated 50-60g Fluid: ml 1250-1500ml (1ml/kcal) Nutritional Problem 1. Problem Problem Underweight related to Etiology possible imbalance of energy intake vs expenditure aeb Signs/Symptoms: BMI <18.5, muscle/fat depletion Intervention/Recommendation Comments 1. Continue with pureed diet. RD encouraged PO intake and emphasized importance of nutrition, pt agreed to increase PO intake. This lunch 50%, meeting 134% of lower end of estimated kcal needs. 2. FNS to honor pt's food preferences. 3. Obtain new weight, if possible. Expected Outcomes/Goals Expected Outcomes/Goals 1. PO intake to meet at least 100% of estimated nutritional needs. 2. Weight gain towards IBW.
--- NOTE | 2016-06-14 00:34 | Discharge Summary ---
HOSPITAL COURSE: The patient was admitted to the Emergency Room with chief complaint of left leg swelling and redness for almost a month and left lower quadrant abdominal pain. From the Emergency Room, the patient was diagnosed with cellulitis and also a CT scan of the abdomen showed that there is some abdominal mass mainly on the left lower quadrant. The patient also admitted to Med/Surg Unit and treated with series of IV antibiotics for the cellulitis and also surgical consult was involved due to abdominal mass and uterine prolapse, but unfortunately, the patient refused to undergo further series of diagnostic procedures or surgery, and instead the patient prefers just to go home and it was also discussed per the patient's daughter. The patient was discharged home with Home Health to follow for her IV antibiotics. DISCHARGE DIAGNOSES: 1. Cellulitis of both lower extremities. 2. Abdominal wall mass. 3. Uterine prolapse. 4. Hypothyroidism. 5. Hypertension. DISCHARGE INSTRUCTIONS: The patient will be followed up with home health nurse at home and will follow up with her primary doctor in 2 to 3 weeks. [facility]# [id number]
== END 2016-06-12 15:50 | disposition home or self-care (01) | DRG 603 ==
LOC: ER 13:35 → MSI 15:40
PROVIDERS: ADMIT Internal Medicine Infectious Disease; ATTEND Internal Medicine Infectious Disease
DX: L03.116 Cellulitis of left lower limb (principal); E44.0 Moderate protein-calorie malnutrition; K51.90 Ulcerative colitis, unspecified, without complications; D64.9 Anemia, unspecified; L03.115 Cellulitis of right lower limb; N81.4 Uterovaginal prolapse, unspecified; I10 Essential (primary) hypertension; E03.9 Hypothyroidism, unspecified; R19.00 Intra-abdominal and pelvic swelling, mass and lump, unspecified site; K46.9 Unspecified abdominal hernia without obstruction or gangrene; M19.90 Unspecified osteoarthritis, unspecified site; K59.00 Constipation, unspecified; Z82.49 Family history of ischemic heart disease and other diseases of the circulatory system; Z83.3 Family history of diabetes mellitus; Z53.20 Procedure and treatment not carried out because of patient's decision for unspecified reasons
CPT/HCPCS: 36415-UA; 80048-TC; 80053-TC; 80202-TC; 84443-TC; 85025-TC; 85610-TC; 85730-TC; 93970-TC-50; A4216; J1644; J3370; J7030